=== PATIENT | female | born 1945 | race African-American/Black ===

== ENCOUNTER 2018-07-01 06:25 | Day surgery (SDC) | payer OTHER ==
[2018-07-01] VITALS (11 sets, daily range): BP systolic 116–151; BP diastolic 67–78; PULSE 70–80; RESP 13–27; Ht 162.6 cm; Wt 100.0 kg
[~2018-07-01] VITALS: Ht 162.6 cm; Wt 100.0 kg
[~2018-07-01 06:25] MED LIST: AMLO-147 PO; ASPI81TA52 PO; ATOR10TA65 PO; BROMFENAC SODIUM 1.7 ML OPH DROP OPER SCH; CPR3OO3.5 BOTH EYES; DOCU-159 PO; GABA-526 PO; LACTATED RINGER'S 1,000 ML IV SCH; LIDOCAINE 3.5% GEL TUBE OPER ONE; LIRA0.6P2 SQ; LOSA1TAB25 PO; MOXIFLOXACIN 0.5% 3 ML OPH OPER SCH; OMEP20CA16 PO; PRED5DRO20 BOTH EYES; SENN-120 PO; SITA1TAB5 PO; TETRACAINE 0.5% 4 ML OPH OPER SCH
[2018-07-01] MEDS ORDERED: CEFAZOLIN 1 GM INJ ONE (07:00)
[2018-07-01] MEDS ORDERED: SENN-120 PO (07:28)
[2018-07-01] MEDS ORDERED: LIRA0.6P2 SQ (07:28)
[2018-07-01] MEDS ORDERED: OMEP20CA16 PO (07:28)
[2018-07-01] MEDS ORDERED: SITA1TAB5 PO (07:28)
[2018-07-01] MEDS ORDERED: DOCU-159 PO (07:37)
[2018-07-01] MEDS ORDERED: ATOR10TA65 PO (07:37)
[2018-07-01] MEDS ORDERED: KETO5DRO79 LEFT EYE (07:37)
[2018-07-01] MEDS ORDERED: ACET-141 PO (07:37)
[2018-07-01] MEDS ORDERED: AMLO-147 PO (07:37)
[2018-07-01] MEDS ORDERED: VIGA LEFT EYE (07:37)
[2018-07-01] MEDS ORDERED: LATA2.5D2 BOTH EYES (07:37)
[2018-07-01] MEDS ORDERED: GABA300C16 PO (07:37)
[2018-07-01] MEDS ORDERED: LOSA1TAB25 PO (07:37)
[2018-07-01] MEDS ORDERED: PRED5DRO20 BOTH EYES (07:37)
[2018-07-01] MEDS ORDERED: CARB1DRO7 OP (07:37)
[2018-07-01] MEDS ORDERED: ALP2OP10 LEFT EYE (07:37)
[2018-07-01] MEDS ORDERED: CEPH500C PO (07:38)
[2018-07-01] MEDS ORDERED: [UNRECOGNIZED DRUG - CODE] LEFT EYE (07:38)
[2018-07-01] MEDS ORDERED: OFLO5DRO3 OP (07:43)
[2018-07-01] MEDS ORDERED: CARBACHOL 0.01% 1.5 ML OPH INJ ONE (07:49)
[2018-07-01] MEDS ORDERED: EPINEPHrine 1 MG INJ ONE (07:49)
[2018-07-01] MEDS ORDERED: TOBRAMYCIN 0.3% 3.5 GM OPH OINT ONE (07:49)
[2018-07-01] MEDS ORDERED: NA HYALURONATE/CHONDROITIN 0.5 ML SYG ONE (07:49)
--- NOTE | 2018-07-01 07:53 | HPN ---
Date/Time of Note Date/Time of Note DATE: 07/01/18 TIME: 07:53 Interval H&P Admission Note Pt. seen H&P reviewed: No system changes REAL COYNE D.O. Jul 01, 2018 07:53
[2018-07-01] MEDS ORDERED: MIDAZOLAM 1 MG/ML 2 ML INJ IV PRN (08:00)
[2018-07-01] MEDS ORDERED: hydrALAzine 20 MG INJ IV PRN (08:00)
[2018-07-01] MEDS ORDERED: ALBUTEROL 0.083% (NEB) 2.5 MG/3 ML AMP HHN PRN (08:00)
[2018-07-01] MEDS ORDERED: MEPERIDINE 25 MG INJ IV PRN (08:00)
[2018-07-01] MEDS ORDERED: LIDOCAINE 2% (MDV) 20 ML INJ INJ ONE (08:00)
[2018-07-01] MEDS ORDERED: IPRATROPIUM (NEB) 0.5 MG/2.5 ML AMP HHN PRN (08:00)
[2018-07-01] MEDS ORDERED: DIPHENHYDRAMINE 50 MG INJ IV PRN (08:00)
[2018-07-01] MEDS ORDERED: ONDANSETRON 4 MG INJ IV PRN (08:00)
[2018-07-01] MEDS ORDERED: TETRACAINE 0.5% 4 ML OPH LEFT EYE ONE (08:00)
[2018-07-01] MEDS ORDERED: FENTAnyl 50 MCG/ML VIAL IV PRN ×3 (08:00)
[2018-07-01] MEDS ORDERED: LIDOCAINE 2%/EPI MPF (SDV) 20 ML VIAL INJ ONE (08:00)
[2018-07-01] MEDS ORDERED: LABETALOL HCL 20MG INJ IV PRN (08:00)
[2018-07-01] MEDS ORDERED: HYDROmorphONE 1 MG/5 ML IV SYRINGE IV PRN ×3 (08:00)
[2018-07-01] MEDS ORDERED: OXYCODONE/ACETAMINOPHEN (5/325) TAB PO PRN ×2 (08:00)
[2018-07-01] MEDS ORDERED: EPHEDrine SULFATE 50 MG/5 ML SYG IV PRN (08:00)
[2018-07-01] MEDS ORDERED: TRIMETHOBENZAMIDE 100 MG/ML VIAL IM PRN (08:00)
--- NOTE | 2018-07-01 08:02 | PREAC ---
Date/Time of Note Date/Time of Note DATE: 07/01/18 TIME: 08:00 Anesthesia Eval and Record Evaluation Time Pre-Procedure Interview DATE: 07/01/18 TIME: 08:00 Age 73 Sex female NPO: 8 hrs Preoperative diagnosis dislocated left eye lens Planned procedure left eye pars plana vitrectomy repositioning of iol Past Medical History Past Medical History: Includes Cardio: HTN, Dyslipidemia Endo: Diabetes GI: Obesity Surgery & Anesthesia Issues No known issue Meds Anticoagulation: No Beta Devika within 24 hr: No Reason Beta Devika not given: Pt. not on B-Devika Reported Medications Ofloxacin (Ofloxacin) 5 Ml Drops, 1 DROP OP QID 07/01/18 Cephalexin* (Cephalexin*) 500 Mg Capsule, 500 MG PO BID, #28 CAP 07/01/18 Neomycin/Polymyxin/Dexameth* (Maxitrol*) 3.5 Gm Oint, 1 APPLIC LEFT EYE QHS, TUB 07/01/18 Brimonidine Tartrate* (Alphagan*) 0.2%-10 Ml Opht Drops, 1 DROP LEFT EYE BID, BOTTLE 07/01/18 Ketorolac Tromethamine Oph (Ketorolac Tromethamine Oph) 0.4%-5 Ml Opht Drops, 1 DROP LEFT EYE QID, EA 07/01/18 Carboxymethylcellulose Sodium (Lubricant Eye Drops) 1 Each Droperette, 1 DROP OP QID 07/01/18 Prednisolone Acetate* (Pred Forte*) 5 Ml Susp, 1 DROP BOTH EYES QID, EA 07/01/18 Moxifloxacin Hcl* (Vigamox*) 0.5% - 3 Ml Opht, 1 DROP LEFT EYE QID, #1 EA 07/01/18 Amlodipine Besylate* (Amlodipine Besylate*) 10 Mg Tablet, 10 MG PO DAILY, #30 TAB 07/01/18 Acetaminophen* (Acetaminophen*) 500 MG Extra Strength Tablet, 500 MG PO Q4H PRN for PAIN AND OR ELEVATED TEMP, TAB 07/01/18 Losartan-Hydrochlorothiazide (Losartan-HCTZ) 100-25 Mg Tab, 1 TAB PO DAILY, TAB 07/01/18 Gabapentin* (Gabapentin*) 300 Mg Capsule, 1200 MG PO BID, #180 CAP 07/01/18 Latanoprost (Latanoprost) 2.5 Ml Drops, 1 DROP BOTH EYES QHS, #1 BOTTLE 07/01/18 Atorvastatin Calcium (Atorvastatin Calcium) 10 Mg Tablet, 10 MG PO QHS, #30 TAB 07/01/18 Docusate Sodium* (Docusate Sodium*) 100 Mg Capsule, 100 MG PO BID, #60 CAP 07/01/18 Sitagliptin Phos/Metformin HCl (Janumet 50-1,000 mg Tablet) 1 Each Tablet, 1 TAB PO BID, TAB 07/01/18 Sennosides* (Senna Lax*) 8.6 Mg Tablet, 1 TAB PO DAILY, TAB 07/01/18 Omeprazole* (Omeprazole*) 20 Mg Capsule.dr, 20 MG PO DAILY, #30 CAP 07/01/18 Liraglutide (Victoza 3-Ramses) 0.6 Mg/0.1 Ml Pen.injctr, 1.8 MG SQ DAILY, SYR 07/01/18 Discontinued Reported Medications Losartan-Hydrochlorothiazide (Losartan-HCTZ) 100-25 Mg Tab, 1 TAB PO DAILY, TAB 04/29/18 Prednisolone Acetate* (Pred Forte*) 5 Ml Susp, 1 DROP BOTH EYES QID, EA 04/29/18 Ciprofloxacin Opht* (Ciloxan*) 0.3%-3.5 Opht Oint, 1 APPLIC BOTH EYES QID, EA 04/29/18 Amlodipine Besylate* (Amlodipine Besylate*) 10 Mg Tablet, 10 MG PO DAILY, #30 TAB 04/29/18 Gabapentin* (Gabapentin*) 600 Mg Tablet, 1200 MG PO BID, #180 TAB 04/29/18 Atorvastatin Calcium (Atorvastatin Calcium) 10 Mg Tablet, 10 MG PO QHS, #30 TAB 04/29/18 Docusate Sodium* (Docusate Sodium*) 100 Mg Capsule, 100 MG PO BID, #60 CAP 04/29/18 Aspirin (Low Dose Aspirin) 81 Mg Tablet.dr, 81 MG PO DAILY, #30 TAB 04/29/18 Sitagliptin Phos/Metformin HCl (Janumet 50-1,000 mg Tablet) 1 Each Tablet, 1 EACH PO BID, TAB 04/29/18 Sennosides* (Senna Lax*) 8.6 Mg Tablet, 1 TAB PO DAILY, TAB 04/29/18 Omeprazole* (Omeprazole*) 20 Mg Capsule.dr, 20 MG PO BID, #60 CAP 04/29/18 Liraglutide (Victoza 3-Ramses) 0.6 Mg/0.1 Ml Pen.injctr, 1.8 MG SQ DAILY, SYR 04/29/18 Current Medications Lactated Ringer's 1,000 ml @ 25 mls/hr Q24H IV ; Start 07/01/18 at 06:00 Bromfenac Sodium (Bromday) 1 drop Q5 MIN X3 OPER Last administered on 07/01/18at 07:00; Admin Dose 1 DROP; Start 07/01/18 at 06:00 Moxifloxacin HCl (Vigamox) 1 drop Q5MIN X 3 OPER Last administered on 07/01/18at 07:01; Admin Dose 1 DROP; Start 07/01/18 at 06:00 Tetracaine HCl (Tetracaine 0.5% Steri-Unit Shraddha) 1 drop Q5 MIN X3 OPER Last administered on 07/01/18at 07:00; Admin Dose 1 DROP; Start 07/01/18 at 06:00 Meds reviewed: Yes Allergies Coded Allergies: No Known Allergy (Unverified , 07/01/18) Allergies Reviewed: Yes Labs/Studies Labs Reviewed: Reviewed by anesthesiologist Result Diagram: 07/01/18 0700 07/01/18 0700 Laboratory Tests 07/01/18 07:00 test: N/A Studies: ECG (NL), CXR (NAPD) Pre-procedure Exam Last vitals Vital Signs Date Temp Pulse Resp B/P (MAP) Pulse Ox O2 O2 Flow FiO2 Time Delivery Rate 07/01/18 97.3 70 14 131/68 100 Room Air 07:20 (89) Airway: Adequate mouth opening, Adequate thyromental dist Mallampati: Mallampati II Teeth: Normal Lung: Normal Heart: Normal ASA Physical Status ASA physical status: 2 Emergency: None Planned Anesthetic General/MAC: MAC Planned Pain Management Parenteral pain med Pre-operative Attestations Prior to commencing anesthesia and surgery, the patient was re-evaluated, there was verification of: *The patient's identity *The results of appropriate recent lab work and preoperative vital signs *The above evaluation not changing prior to induction *Anesthetic plan, risk benefits, alternative and complications discussed with patient/family; questions answered; patient/family understands, accepts and wishes to proceed. Sebastian Grant M.D. Jul 01, 2018 08:02
[2018-07-01] MEDS ORDERED: FENTAnyl 50 MCG/ML VIAL ONE (08:27)
[2018-07-01] MEDS ORDERED: CYCLOPENTOLATE 2% 2 ML OPH ONE (08:29)
[2018-07-01] MEDS ORDERED: CYCLOPENTOLATE 2% 2 ML OPH OPER ONE (08:35)
[2018-07-01] MEDS ORDERED: NA HYALURONATE/CHONDROITIN 0.5 ML SYG LEFT EYE ONE (08:50)
[2018-07-01] MEDS ORDERED: TOBRAMYCIN 0.3% 3.5 GM OPH OINT LEFT EYE ONE (08:50)
[2018-07-01] MEDS ORDERED: CARBACHOL 0.01% 1.5 ML OPH INJ LEFT EYE ONE (08:56)
--- NOTE | 2018-07-01 09:18 | SIPON ---
Date/Time of Note Date/Time of Note DATE: 07/01/18 TIME: 09:16 Operative Report Preoperative Diagnosis dislocated IOL, Lt eye Postoperative Diagnosis Dislocated Iol, Lt eye. Operation/Procedure Performed 1.Pars plana vitrectomy, Lt eye. 2. Repositioning of IOL, Lt. eye. Surgeon see signature line bar assistant none Anesthesia: MAC Estimated blood loss: none Transfusion Required none Specimen none Grafts/Implants none Complications none REAL COYNE D.O. Jul 01, 2018 09:18
--- NOTE | 2018-07-01 09:21 | PAC ---
Date/Time of Note Date/Time of Note DATE: 07/01/18 TIME: 09:21 Post-Anesthesia Notes Post-Anesthesia Note Last documented vital signs Vital Signs Date Temp Pulse Resp B/P (MAP) Pulse Ox O2 O2 Flow FiO2 Time Delivery Rate 07/01/18 97.3 70 14 131/68 100 Room Air 07:20 (89) Activity: WNL Respiratory function: WNL Cardiovascular function: WNL Mental status: Baseline Pain reasonably controlled: Yes Hydration appropriate: Yes Nausea/Vomiting absent: Yes Sebastian Grant M.D. Jul 01, 2018 09:21
--- NOTE | 2018-07-01 13:47 | OPR ---
DATE OF OPERATION: 07/01/2018 SURGEON: Esther Edward DO ANESTHESIOLOGIST: Sebastian Grant MD PREOPERATIVE DIAGNOSES: 1. Dislocated intraocular lens, left eye. 2. Vitreous degeneration, left eye. POSTOPERATIVE DIAGNOSES: 1. Dislocated intraocular lens, left eye. 2. Vitreous degeneration, left eye. PROCEDURE PLANNED: Pars plana vitrectomy, left eye, repositioning of intraocular lens or exchange of intraocular lens, left eye. PROCEDURE PERFORMED: Pars plana partial vitrectomy, left eye and intraocular lens reposition, left eye. CONSENT: The patient and her daughter were given detailed explanation of the nature of her condition and possible outcome of the surgery as well as possible complications which included but not limited to bleeding, infection, retinal detachment, loss of vision, loss of the eye, dislocation of intraocular lens. The patient and her daughter are aware of possible complication and agreed to have surgery done. Consent can be found in her chart. DESCRIPTION OF PROCEDURE: The patient was brought to operating room in stable condition and placed on operating table in supine position and her left eye was prepped for cataract surgery in the routine sterile technique. Retractor was placed to hold the eyelids and clear cornea incision was created with keratome. It was followed by injection of 4% lidocaine with epinephrine into anterior chamber. It was followed by some injection of Viscoat agent. Then paracentesis was done as well. Microforceps used to move the optic of intraocular lens into anterior chamber and the second haptic was placed with microforceps into the sulcus, anterior capsular bag was intact. Intraocular lens was rotated with Sinskey hook and it was stable in the sulcus above an anterior capsule. Initially scleral incision was done with Superblade and pars plana vitrectomy was performed. Then, Miostat was injected and 10-0 nylon suture was placed on the wound. TobraDex ointment was instilled into conjunctival sac and patch was placed over closed eyelid. The patient was transferred to recovery room in stable condition and instructions for postoperative care and appointment with Dr. Edward at [facility] was made at 10:00 AM. Dictated By: ESTHER ESCAMILLA/NTS Conf#: [id number] DID#: [id number] [facility] MED[facility] CENTERLidia
== END 2018-07-01 10:15 | disposition home or self-care (01) ==
LOC: SDS 06:25
PROVIDERS: ATTEND Ophthalmology
DX: T85.22XD Displacement of intraocular lens, subsequent encounter (principal); Y83.8 Other surgical procedures as the cause of abnormal reaction of the patient, or of later complication, without mention of misadventure at the time of the procedure; E11.9 Type 2 diabetes mellitus without complications; I10 Essential (primary) hypertension
CPT/HCPCS: 66825; 80048; 82962; 85025; 85610; 85730; J0171; J0690; J3010; Z7512; Z7610

== ENCOUNTER 2018-11-04 06:06 | Day surgery (SDC) | payer OTHER ==
[2018-11-04] VITALS (14 sets, daily range): BP systolic 148–196; BP diastolic 73–102; PULSE 60–93; RESP 12–31
[~2018-11-04] VITALS: Ht 166.4 cm; Wt 103.4 kg
[~2018-11-04 06:06] MED LIST changes: +ACET-141 PO; +ALP2OP10 LEFT EYE; -ASPI81TA52 PO; +CARB1DRO7 OP; +CEPH500C PO; -CPR3OO3.5 BOTH EYES; +DOCU-144 PO; +DULA1.5P SQ; +GABA300C16 PO; +KETO5DRO79 LEFT EYE; -LACTATED RINGER'S 1,000 ML IV SCH; +LATA2.5D2 BOTH EYES; +OFLO5DRO3 OP; +PREN-93 PO; +VIGA LEFT EYE; +[UNRECOGNIZED DRUG - CODE] LEFT EYE
[2018-11-04] MEDS ORDERED: SOD CHLORIDE 0.9% 1,000 ML IV SCH (07:30)
--- NOTE | 2018-11-04 07:41 | PREAC ---
Date/Time of Note Date/Time of Note DATE: 11/04/18 TIME: 07:39 Anesthesia Eval and Record Evaluation Time Pre-Procedure Interview DATE: 11/04/18 TIME: 07:39 Age 73 Sex female NPO: 8 hrs Preoperative diagnosis L eye dislocated intraocular lens Planned procedure L eye repositioning of dislocated intraocular lens Past Medical History Past Medical History: Includes (diabetic retinopathy) Cardio: HTN Endo: Diabetes GI: GERD, Obesity Surgery & Anesthesia Issues No known issue Meds Anticoagulation: No Beta Devika within 24 hr: No Reason Beta Devika not given: Pt. not on B-Devika Reported Medications Vit No.124/Iron/FA ( Vitamin Tablet) 1 Each Tablet, 1 EACH PO, TAB 11/04/18 Dulaglutide (Trulicity) 1.5 Mg/0.5 Ml Pen.injctr, 1.5 MG SQ EVERY WEEK 11/04/18 Gabapentin* (Gabapentin*) 600 Mg Tablet, 600 MG PO BID, #60 TAB 11/04/18 Omeprazole* (Omeprazole*) 20 Mg Capsule.dr, 20 MG PO BID, #60 CAP 11/04/18 Sitagliptin Phos/Metformin HCl (Janumet 50-1,000 mg Tablet) 1 Each Tablet, 1 EACH PO BID, TAB 11/04/18 Acetaminophen* (Acetaminophen*) 500 MG Extra Strength Tablet, 500 MG PO Q4H PRN for PAIN AND OR ELEVATED TEMP, TAB 11/04/18 Amlodipine Besylate* (Amlodipine Besylate*) 10 Mg Tablet, 10 MG PO DAILY, #30 TAB 11/04/18 Losartan-Hydrochlorothiazide (Losartan-HCTZ) 100-25 Mg Tab, 1 TAB PO DAILY, TAB 11/04/18 Docusate Sodium* (Colace*) 100 Mg Capsule, 100 MG PO BID, #60 CAP 11/04/18 Atorvastatin Calcium (Atorvastatin Calcium) 10 Mg Tablet, 10 MG PO QHS, #30 TAB 11/04/18 Discontinued Reported Medications Ofloxacin (Ofloxacin) 5 Ml Drops, 1 DROP OP QID 07/01/18 Cephalexin* (Cephalexin*) 500 Mg Capsule, 500 MG PO BID, #28 CAP 07/01/18 Neomycin/Polymyxin/Dexameth* (Maxitrol*) 3.5 Gm Oint, 1 APPLIC LEFT EYE QHS, TUB 07/01/18 Brimonidine Tartrate* (Alphagan*) 0.2%-10 Ml Opht Drops, 1 DROP LEFT EYE BID, BOTTLE 07/01/18 Ketorolac Tromethamine Oph (Ketorolac Tromethamine Oph) 0.4%-5 Ml Opht Drops, 1 DROP LEFT EYE QID, EA 07/01/18 Carboxymethylcellulose Sodium (Lubricant Eye Drops) 1 Each Droperette, 1 DROP OP QID 07/01/18 Prednisolone Acetate* (Pred Forte*) 5 Ml Susp, 1 DROP BOTH EYES QID, EA 07/01/18 Moxifloxacin Hcl* (Vigamox*) 0.5% - 3 Ml Opht, 1 DROP LEFT EYE QID, #1 EA 07/01/18 Amlodipine Besylate* (Amlodipine Besylate*) 10 Mg Tablet, 10 MG PO DAILY, #30 TAB 07/01/18 Acetaminophen* (Acetaminophen*) 500 MG Extra Strength Tablet, 500 MG PO Q4H PRN for PAIN AND OR ELEVATED TEMP, TAB 07/01/18 Losartan-Hydrochlorothiazide (Losartan-HCTZ) 100-25 Mg Tab, 1 TAB PO DAILY, TAB 07/01/18 Gabapentin* (Gabapentin*) 300 Mg Capsule, 1200 MG PO BID, #180 CAP 07/01/18 Latanoprost (Latanoprost) 2.5 Ml Drops, 1 DROP BOTH EYES QHS, #1 BOTTLE 07/01/18 Atorvastatin Calcium (Atorvastatin Calcium) 10 Mg Tablet, 10 MG PO QHS, #30 TAB 07/01/18 Docusate Sodium* (Docusate Sodium*) 100 Mg Capsule, 100 MG PO BID, #60 CAP 07/01/18 Sitagliptin Phos/Metformin HCl (Janumet 50-1,000 mg Tablet) 1 Each Tablet, 1 TAB PO BID, TAB 07/01/18 Sennosides* (Senna Lax*) 8.6 Mg Tablet, 1 TAB PO DAILY, TAB 07/01/18 Omeprazole* (Omeprazole*) 20 Mg Capsule.dr, 20 MG PO DAILY, #30 CAP 07/01/18 Liraglutide (Victoza 3-Ramses) 0.6 Mg/0.1 Ml Pen.injctr, 1.8 MG SQ DAILY, SYR 07/01/18 Current Medications Bromfenac Sodium (Bromday) 1 drop Q5 MIN X3 OPER Last administered on 11/04/18 07:27; Admin Dose 1 DROP; Start 11/03/18 at 17:30 Moxifloxacin HCl (Vigamox) 1 drop Q5MIN X 3 OPER Last administered on 11/04/18 07:27; Admin Dose 1 DROP; Start 11/03/18 at 17:30 Tetracaine HCl (Tetracaine 0.5% Steri-Unit Shraddha) 1 drop Q5 MIN X3 OPER Last administered on 11/04/18 07:28; Admin Dose 1 DROP; Start 11/03/18 at 17:30 Sodium Chloride 1,000 ml @ 50 mls/hr Q20H IV Last administered on 11/04/18 07:29; Admin Dose 50 MLS/HR; Start 11/04/18 at 07:30 Meds reviewed: Yes Allergies Coded Allergies: No Known Allergy (Unverified , 11/04/18) Allergies Reviewed: Yes Labs/Studies Labs Reviewed: Reviewed by anesthesiologist test: N/A Studies: ECG (ordered) Pre-procedure Exam Airway: Adequate mouth opening, Adequate thyromental dist Mallampati: Mallampati II Teeth: Normal Lung: Normal Heart: Normal ASA Physical Status ASA physical status: 2 Emergency: None Planned Anesthetic General/MAC: MAC Pre-operative Attestations Prior to commencing anesthesia and surgery, the patient was re-evaluated, there was verification of: *The patient's identity *The results of appropriate recent lab work and preoperative vital signs *The above evaluation not changing prior to induction *Anesthetic plan, risk benefits, alternative and complications discussed with patient/family; questions answered; patient/family understands, accepts and wishes to proceed. JUSTIN RILEY Nov 04, 2018 07:41
[2018-11-04] MEDS ORDERED: LABETALOL HCL 20MG INJ IV PRN (08:00)
[2018-11-04] MEDS ORDERED: hydrALAzine 20 MG INJ IV PRN (08:00)
[2018-11-04] MEDS ORDERED: FENTAnyl 50 MCG/ML VIAL IV PRN (08:00)
[2018-11-04] MEDS ORDERED: ALBUTEROL 0.083% (NEB) 2.5 MG/3 ML AMP HHN PRN (08:00)
[2018-11-04] MEDS ORDERED: OXYCODONE/ACETAMINOPHEN (5/325) TAB PO PRN (08:00)
[2018-11-04] MEDS ORDERED: ACETAMINOPHEN 500 MG TAB PO PRN (08:00)
[2018-11-04] MEDS ORDERED: DIPHENHYDRAMINE 50 MG INJ IV PRN (08:00)
[2018-11-04] MEDS ORDERED: ONDANSETRON 4 MG INJ IV PRN (08:00)
[2018-11-04] MEDS ORDERED: ACETAMINOPHEN 325 MG TAB PO PRN (08:00)
[2018-11-04] MEDS ORDERED: hydrALAzine 20 MG INJ ONE (08:20)
[2018-11-04] MEDS ORDERED: LIDOCAINE 1% (MPF) 10 ML INJ ONE (08:20)
[2018-11-04] MEDS ORDERED: TETRACAINE 0.5% 4 ML OPH ONE (08:20)
[2018-11-04] MEDS ORDERED: METOPROLOL 5 MG INJ ONE (08:20)
[2018-11-04] MEDS ORDERED: FENTAnyl 50 MCG/ML VIAL ONE (08:22)
[2018-11-04] MEDS ORDERED: CEFAZOLIN 1 GM INJ ONE ×2 (08:23)
[2018-11-04] MEDS ORDERED: MIDAZOLAM 1 MG/ML 2 ML INJ ONE (08:42)
[2018-11-04] MEDS ORDERED: NA HYALURONATE/CHONDROITIN 0.5 ML SYG ONE (08:45)
[2018-11-04] MEDS ORDERED: CARBACHOL 0.01% 1.5 ML OPH INJ ONE (08:45)
[2018-11-04] MEDS ORDERED: TOBRAMYCIN/DEXAMETH 2.5 ML OPH ONE (08:52)
--- NOTE | 2018-11-04 08:58 | SIPON ---
Date/Time of Note Date/Time of Note DATE: 11/04/18 TIME: 08:55 Operative Report Preoperative Diagnosis Dislocated IOL ,Lt eye Postoperative Diagnosis Dislocated IOL lens Operation/Procedure Performed Repositioning of IOL, Lt eye Surgeon see signature line service assistant Repositioning of IOL, Lt eye Anesthesia: MAC Estimated blood loss: none Transfusion Required none Specimen none Grafts/Implants none Complications none REAL COYNE D.O. Nov 04, 2018 08:58
--- NOTE | 2018-11-04 09:09 | PAC ---
Date/Time of Note Date/Time of Note DATE: 11/04/18 TIME: 09:07 Post-Anesthesia Notes Post-Anesthesia Note Last documented vital signs Vital Signs Date Temp Pulse Resp B/P (MAP) Pulse Ox O2 O2 Flow FiO2 Time Delivery Rate 11/04/18 98 76 72 17 19 194/102 97 97 Nasal 2.0 09:01 0905 (132) 171/ Cannula N 95 C 2L 11/04/18 98.0 08:57 Activity: WNL Respiratory function: WNL Cardiovascular function: WNL Mental status: Baseline Pain reasonably controlled: Yes Hydration appropriate: Yes Nausea/Vomiting absent: Yes JUSTIN RILEY Nov 04, 2018 09:09
[2018-11-04] MEDS ORDERED: HYDROmorphONE 0.5 MG/0.5 ML SYG IV PRN (09:30)
--- NOTE | 2018-11-04 10:30 | RADRPT ---
Vent Rate: 72 bpm RR Interval: 840 msec PA Interval: 166 msec QRS Duration: 102 msec QT Interval: 447 msec QTC Interval: 488 msec P-R-T [place]: 39 - 0 - 64 degrees Sinus rhythm...normal P axis, V-rate 50- 99 Electronically Signed By: Shreyas Marc
--- NOTE | 2018-11-07 08:33 | OPR ---
DATE OF OPERATION: 11/04/2018 SURGEON: Real Edward DO ANESTHESIOLOGIST: Aline Pryor. PREOPERATIVE DIAGNOSIS: Dislocated intraocular lens, Left Eye POSTOPERATIVE DIAGNOSIS: Dislocated intraocular lens, Left Eye. PLANNED PROCEDURE: Reposition of intraocular lens, Left eye. PROCEDURE PERFORMED: Reposition of intraocular lens, Left eye. CONSENT: The patient and her family were given detailed explanation regarding her condition and possible way to correct the complication she had as a result of the surgery. Patient and her son were given explanation regarding possible complication of reposition of intraocular lens, which can include but not limited to no improvement, tear of iris, bleeding, infection, damage of the cornea, , the decrease of vision, loss of vision and loss of the eye. Patient and her family understood, the patient aware of possible complication and agreed to sign the consent and consent can be found in her chart. DESCRIPTION OF PROCEDURE: The patient brought to operating room in stable condition and placed on the operating table in supine position. Her left eye was prepped for the surgery in routine sterile technique. Then retractor was placed to hold her eyelids and a paracentesis was created with Superblade. Lidocaine with epinephrine preservative-free was injected into anterior chamber. It was followed by injection of Viscoat agent. Then, a Sinskey hook was used as well as a spatula used to separate the iris from underlying capsular bag. Then gaptic placed behind the iris .as well as optic. As result of manual manipulation, the lens was placed in a central position behind the iris in the sulcus. Viscoat agent was removed via irrigation aspiration with balanced salt solution. TobraDex ointment was instilled into conjunctival sac and patch was placed over closed eyelid. Dictated By: REAL ESCAMILLA/ZACHARY Conf#: [id number] DID#: [id number] NOEMÍ
== END 2018-11-04 11:05 | disposition home or self-care (01) ==
LOC: SDS 06:06
PROVIDERS: ATTEND Ophthalmology
DX: T85.22XD Displacement of intraocular lens, subsequent encounter (principal); Y83.8 Other surgical procedures as the cause of abnormal reaction of the patient, or of later complication, without mention of misadventure at the time of the procedure; I10 Essential (primary) hypertension; E11.9 Type 2 diabetes mellitus without complications
CPT/HCPCS: 66999; 82962; 93005; J0360; J0690; J2250; J2405; J3010; Z7512; Z7610